=== PATIENT | female | born 1960 | race African-American/Black ===

== ENCOUNTER 2017-06-17 09:12 | Emergency (ER) | payer OTHER ==
[2017-06-17 09:19] VITALS: BP 132/88; PULSE 82; TEMP 97.4; BMI 29.5
[2017-06-17] MEDS ORDERED: KETOROLAC TROMETHAMINE 30 MG/1 ML VIAL IM ONE (10:19)
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
[2017-06-17] MEDS ORDERED: KETOROLAC TROMETHAMINE 30 MG/1 ML VIAL ONE (10:41)
== END 2017-06-17 11:17 | disposition home or self-care (01) ==
LOC: JER 09:12 → JERFT 09:12 → JER 11:17
PROC: 3E0233Z Introduction of Anti-inflammatory into Muscle, Percutaneous Approach (ICD-10-PCS; principal; 2017-06-17)
DX: M79.1 Myalgia (principal); V43.52XA Car driver injured in collision with other type car in traffic accident, initial encounter; Y93.89 Activity, other specified; Y92.410 Unspecified street and highway as the place of occurrence of the external cause; I10 Essential (primary) hypertension
CPT/HCPCS: 99281-25